=== PATIENT | female | born 2000 | race Caucasian/White ===

== ENCOUNTER 2022-06-20 21:22 | Emergency (ER) | payer BC ==
[~2022-06-20] VITALS: Ht 177.8 cm; Wt 77.1 kg
[2022-06-20 21:35] VITALS: BP 130/56
--- NOTE | 2022-06-20 21:38 | NUR ---
TO LOBBY A/W BED AMBULATORY
[2022-06-20 21:57] LABS: APPEARANCE,URINE CLEAR (CLEAR); BILIRUBIN,URINE NEGATIVE (NEGATIVE); BLOOD, URINE NEGATIVE (NEGATIVE); COLOR,URINE YELLOW (YELLOW); LEUKOCYTE ESTERASE ,URINE TRACE (NEGATIVE); NITRITE, URINE NEGATIVE (NEGATIVE); PH,URINE 7.5 (5.0-9.0); UGLUCOSE NEGATIVE (NEGATIVE)
[2022-06-20 22:31] LABS: RBC,URINE 0-5 /HPF (0-5)
[2022-06-20] MEDS ORDERED: ONDANSETRON 4 MG/2 ML VIAL IVP ONE (23:15)
[2022-06-20] MEDS ORDERED: NACL 0.9% 1,000 ML IV SCH (23:15)
--- NOTE | 2022-06-20 23:35 | NUR ---
pt to [facility].
--- NOTE | 2022-06-20 23:46 | NUR ---
21 yo f bib self with c/c of n/v x1000 today. reports 7/10 abd pain as well as painful urination. denies diarrhea. denies blood in emesis. hx:RA bone
[2022-06-20 23:59] LABS: BASOPHILS % (AUTO) 0.1 % (0.0-2.0); EOSINOPHILS % (AUTO) 0.1 % (0.0-4.0); HEMOGLOBIN 14.4 g/dL (12.0-16.0); LYMPHOCYTES # (AUTO) 0.4 K/uL (2.5-16.5); LYMPHOCYTES % (AUTO) 3.4 % (20.5-51.1); MEAN CORPUSCULAR HEMOGLOBIN 31 pg (27-31); MEAN CORPUSCULAR HGB CONC 34 g/dL (33-37); MEAN CORPUSCULAR VOLUME 90.6 fL (80-94); MONOCYTES # (AUTO) 0.4 K/uL (0.8-1.0); MONOCYTES % (AUTO) 3.2 % (1.7-9.3); NEUTROPHILS # (AUTO) 11.8 K/uL (1.8-7.7); PLATELET COUNT (AUTO) 264 K/uL (140-450); RED BLOOD CELL COUNT(AUTO) 4.74 MIL/uL (4.20-5.40); RED CELL DISTRIBUTION WIDTH 12.9 % (11.6-13.7); WHITE BLOOD COUNT (AUTO) 12.7 K/uL (4.5-11.0)
[2022-06-21 00:18] LABS: ALBUMIN 3.9 g/dL (3.4-5.0); ANION GAP 15.7 (8-16); CARBON DIOXIDE 24.4 mmol/L (21-32); CREATININE 0.9 mg/dL (0.6-1.3); POTASSIUM 4.1 mmol/L (3.5-5.1); TOTAL BILIRUBIN 0.4 mg/dL (0.0-1.0)
[2022-06-21 00:24] LABS: NEUTROPHILS % (AUTO) 93.2 % (42.2-75.2)
[2022-06-21] MEDS ORDERED: LIDOCAINE 5% 1 EA PATCH TP ONE (00:45)
[2022-06-21] MEDS ORDERED: METOCLOPRAMIDE 10 MG/2 ML INJ VIAL IVP ONE (00:45)
[2022-06-21] MEDS ORDERED: KETOROLAC 15 MG/ML VIAL IVP ONE (00:45)
[2022-06-21] MEDS ORDERED: CEPH-588 PO (01:12)
[2022-06-21] MEDS ORDERED: LID5T TP (01:12)
[2022-06-21 01:21] VITALS: BP 118/62
--- NOTE | 2022-06-21 01:21 | NUR ---
Patient discharged with v/s stable. Written and verbal after care instructions given and explained. Patient alert, oriented and verbalized understanding of instructions. Ambulatory with steady gait. All questions addressed prior to discharge. ID band removed. Patient advised to follow up with PMD. Rx of KEFLEX, LIDODER PATCH given. Patient educated on indication of medication including possible reaction and side effects. Opportunity to ask questions provided and answered.
== END 2022-06-21 01:21 | disposition home or self-care (01) ==
LOC: MED 21:22
DX: N30.00 Acute cystitis without hematuria (principal); M54.50 Low back pain, unspecified
CPT/HCPCS: 36415; 80053; 81001; 81025; 83690; 85025; 87086; 96361; 96374; 96375; 99284; J1885; J2405; J2765; J7030